=== PATIENT | female | born 1995 | race Two or more races ===

== ENCOUNTER 2024-05-28 18:43 | Emergency (ER) | payer SELFPAY ==
[2024-05-28 18:48] VITALS: BP 162/88; PULSE 77; TEMP 36.5; O2SAT 99; BMI 20.8
--- NOTE | 2024-05-28 19:03 | ED.GENADUL1 ---
HPI HPI - General Adult General Chief complaint: Abdominal Pain Stated complaint: LOWER ABDOMIN PAIN Time Seen by Provider: 05/28/24 18:44 Source: patient Mode of arrival: walk-in History of Present Illness HPI narrative: Patient is a 28-year-old female presents to the ER for evaluation of suprapubic pelvic pain. Patient notes symptoms started with sharp pains approximately 1 week before her menstrual stuck cycle started her periods are typically heavy for 3 days out of the 5 of her cycle. She is currently on her menses. Patient states she has been having these episodes for over a year. Patient states the first time it happened she actually had a fall and noticed 2 large blood clots that came out but that was a year ago. The patient is Croatian-speaking she has her with her and her pastors daughter at the bedside who is currently translating. The patient feels comfortable with her friend translating and we discussed her initial history of present illness however I will formal translation to further evaluate her history and symptoms. Patient denies any nausea or vomiting denies diarrhea. She has pain that is suprapubic and also in her back she did have a bowel movement earlier today. She denies any chest pain or shortness of breath. She denies any vaginal drainage or discharge no discomfort with urination. Location: Reports abdomen and pelvis Radiation: Reports non-radiation Severity: moderate Quality: Reports aching and sharp Pain Consistency: Reports constant Relieving factors: Reports none Exacerbating factors: Reports none Related Data Previous Rx's ?Medication ?Instructions ?Recorded ibuprofen 600 mg tablet 600 mg PO TID PRN pain #30 tabs 05/28/24 Allergies Allergy/AdvReac Type Severity Reaction Status Date / Time No Known Drug Allergies Allergy Verified 05/28/24 18:52 Opioid HPI Opioid Management Most Recent Opioid Data: No Data to Display Review of Systems ROS Constitutional Denies: fever, chills or change in weight Eyes Denies: change in vision or blurry vision Ears, nose, mouth, and throat Denies: throat pain, neck pain or throat swelling Cardiovascular Denies: chest pain or palpitations Respiratory Denies: shortness of breath or cough Gastrointestinal Reports: abdominal pain; Denies: nausea or vomiting Genitourinary Reports: painful urination, painful menstruation and vaginal bleeding; Denies: urinary frequency, urinary urgency or vaginal discharge Musculoskeletal Reports: back pain; Denies: neck pain, extremity pain or extremity swelling Integumentary/Breast Denies: rash or itching Neurological Denies: headache Endocrine Denies: excessive urination Exam Narrative Exam Narrative: Nurses notes and vital signs reviewed and patient is not hypoxic. General: The patient appears well and in no apparent distress. Patient is resting comfortably on cart. Skin: Warm, dry, no pallor noted. Head: Normocephalic, atraumatic Neck: Supple, trachea mid-line, no tenderness, no lymphadenopathy Eye: Pupils are equal, round and reactive to light, EOMI Ears, Nose, Mouth, and Throat: External exam unremarkable, mucous membranes moist Cardiovascular: Regular Rate and Rhythm Respiratory: Patient is in no distress, no accessory muscle use, lungs are clear to auscultation, no wheezing, rales or rhonchi. Chest Wall: no tenderness Back: non-tender, no CVA tenderness Musculoskeletal: normal ROM, no tenderness, no swelling GI: Normal bowel sounds, positive suprapubic tenderness to palpation, no masses appreciated. No rebound, guarding, or rigidity noted. Neurological: A&O x4 Psychiatric: Cooperative Constitutional Vital Signs, click to edit/add: Last Vital Signs Temp 97.7 F 05/28/24 18:48 Pulse 72 05/28/24 21:13 Resp 16 05/28/24 21:13 BP 114/77 05/28/24 21:13 Pulse Ox 100 05/28/24 21:13 O2 Del Method Room Air 05/28/24 21:13 Course Vital Signs Vital signs: Vital Signs Temperature 97.7 F 05/28/24 18:48 Pulse Rate 77 05/28/24 18:48 Respiratory Rate 18 05/28/24 18:48 Blood Pressure 162/88 H 05/28/24 18:48 Pulse Oximetry 99 05/28/24 18:48 Oxygen Delivery Method Room Air 05/28/24 18:48 Temperature 97.7 F 05/28/24 18:48 Pulse Rate 72 05/28/24 21:13 Respiratory Rate 16 05/28/24 21:13 Blood Pressure 114/77 05/28/24 21:13 Pulse Oximetry 100 05/28/24 21:13 Oxygen Delivery Method Room Air 05/28/24 21:13 Medical Decision Making [facility] Narrative Medical decision making narrative: Patient presents with history concerning for dysmenorrhea. Spouse is present at bedside she denies any abnormal vaginal discharge she notes 3 out of the 5 days when she is on her menses is heavier for flow than the last couple. Patient reevaluated I did not want to offend the patient's friend who was from her orthodoxy doing the initial interpretation for the patient of which she felt comfortable but to gain further knowledge I did elicit the bedside hitting coach via the iPad. Extensive conversation with the patient about her symptoms and she has been having pain with her periods monthly for the past year. She is almost pain-free with the dose of Toradol given through the IV. We discussed a prescription of Motrin for at home she is strongly encouraged to follow-up with a rush seater to discuss her symptoms and potential treatments as this has been a monthly occurrence her ultrasound was performed today and there was no evidence of torsion, patient agreeable with treatment plan had no further concerns or questions. The abdomen was reexamined and nonsurgical no tenderness at McBurney's point the bedside hitting coach was used to discussed the importance of follow-up and answered all patient's questions. The patient is to followup with OBGYN/ primary care physician in next 2-3 days or to return to the emergency department should any of the signs or symptoms worsen or new symptoms develop. Patient had questions answered. The patient agrees with the following Diagnosis and Treatment plan and the patient will be discharged home. Lab Data Lab results reviewed: Yes I reviewed the patient's lab results Labs: Lab Results 05/28/24 05/28/24 Range/Units 18:57 19:00 WBC 11.1 H (4.0-11.0) 10^3/uL RBC 4.71 (4.20-5.40) 10^6/uL Hgb 13.9 (12.0-16.0) g/dL Hct 40.6 (36.0-48.0) % MCV 86.2 (81.0-99.0) fL MCH 29.5 (26.7-34.0) pg MCHC 34.2 (29.9-35.2) g/dL RDW 13.2 (11.0-15.0) % Plt Count 322 (150-450) 10^3/uL MPV 11.8 (9.5-13.5) fL Neut % (Auto) 61.4 (43.0-75.0) % Lymph % (Auto) 28.1 (20.5-60.0) % [place] % (Auto) 6.2 (1.7-12.0) % Eos % (Auto) 3.2 (0.9-7.0) % Baso % (Auto) 0.5 (0.2-2.0) % Neut # (Auto) 6.8 H (1.4-6.5) 10^3/uL Lymph # (Auto) 3.1 (1.2-3.8) 10^3/uL [place] # (Auto) 0.7 (0.3-0.8) 10^3/uL Eos # (Auto) 0.4 (0.0-0.7) 10^3/uL Baso # (Auto) 0.1 (0.0-0.1) 10^3/uL Abs Immat Gran (auto) 0.07 H (0.00-0.03) 10^3/uL Imm/Tot Granulo (auto) 0.6 H (0.0-0.5) % Sodium 141 (136-145) mmol/L Potassium 4.3 (3.5-5.1) mmol/L Chloride 104 (98-107) mmol/L Carbon Dioxide 25.5 (21.0-32.0) mmol/L Anion Gap 15.8 BUN 12.0 (7.0-18.0) mg/dL Creatinine 0.65 (0.55-1.02) mg/dL Est GFR ( Amer) >60 (>=60 mL/min/1.73m^2) Est GFR (Non-Af Amer) >60 (>=60 mL/min/1.73m^2) BUN/Creatinine Ratio 18.5 Glucose 111 H (74-106) mg/dL Lactate 1.4 (0.4-2.0) mmol/L Calcium 9.1 (8.5-10.1) mg/dL Total Bilirubin 0.3 (0.2-1.0) mg/dL AST 44 H (15-37) U/L ALT 94 H (14-59) U/L Alkaline Phosphatase 99 (46-116) U/L Total Protein 7.7 (6.4-8.2) g/dL Albumin 3.8 (3.4-5.0) g/dL Globulin 3.9 g/dL Albumin/Globulin Ratio 1.0 Lipase 52.0 (16.0-77.0) U/L Serum HCG, Qual Negative (NEGATIVE) Urine Color Lt. yellow (YELLOW) Urine Clarity Clear (CLEAR) Urine pH 6.5 (5.0-9.0) Ur Specific [place] 1.020 (1.005-1.025) Urine Protein Negative (NEG/TRACE) mg/dL Urine Glucose (UA) Negative (NEGATIVE) mg/dL Urine Ketones Negative (NEGATIVE) mg/dL Urine Occult Blood Negative (NEGATIVE) Urine Nitrite Negative (NEGATIVE) Urine Bilirubin Negative (NEGATIVE) Urine Urobilinogen 0.2 (0.2-1.0) EU/dL Ur Leukocyte Esterase Trace A (NEGATIVE) Urine RBC 0-2 (0-2) #/HPF Urine WBC 2-5 A (NONE SEEN) #/HPF Ur Squamous Epith Cells Few A (NONE/RARE) #/LPF Urine Crystals None seen (None Seen) #/HPF Urine Bacteria None seen (NONE SEEN) #/HPF Urine Casts None seen (NONE SEEN) #/LPF Urine Mucus None seen (NONE SEEN) Ur Culture Indicated? No Discharge Plan Discharge Chief Complaint: Abdominal Pain Clinical Impression: Dysmenorrhea, Pelvic pain Patient Disposition: Home, Self-Care Time of Disposition Decision: 21:19 Condition: Good Mode of Transportation: Private Vehicle Prescriptions / Home Meds: New ibuprofen 600 mg tablet 600 mg PO TID PRN (Reason: pain) Qty: 30 0RF Print Language: Croatian Instructions: Dysmenorrhea (ED) Additional Instructions: Dr. Jones/ Dr. Del Angel for CASEWORK SUPERVISOR- follow up Referrals: Hieu Del Angel DO [Physician] - As soon as possible [facility] [Physician] - As soon as possible Fartun Jones MD [Physician] - As soon as possible
[2024-05-28] MEDS: KETOROLAC TROMETHAMINE 30 MG/ML VIAL IVP (19:10)
--- NOTE | 2024-05-28 19:19 | US_ITS ---
[address] [address] Patient Name: ARISTIDES MUKHERJEE MRN: [id number] date: 1995 Sex: F Assigned Patient Location: ER Current Patient Location: Accession/Order Number: [id number] Exam Date: 05/28/2024 19:20 Report Date: 05/28/2024 21:23 At the request of: ERMELINDA CHÁVEZ Procedure: US pelvis transvaginal EXAM: US Pelvis Transvaginal CLINICAL INDICATION: pelvic pain TECHNIQUE: Real-time transvaginal pelvic ultrasound with image documentation. Transvaginal imaging was used for better evaluation of the endometrium and adnexa. COMPARISON: No relevant prior studies available. FINDINGS: UTERUS/CERVIX: Uterus measures 7.8 x 4.1 x 5.5 cm. The endometrium is 12 mm. No myometrial mass. RIGHT OVARY: Right ovary measures 2.7 x 2.2 x 2.5 cm. Normal blood flow. LEFT OVARY: The left ovary measures 1.9 x 1.8 x 2.6 cm. Normal blood flow. FREE FLUID: No free fluid. US/US pelvis transvaginal IMPRESSION: Unremarkable pelvic ultrasound. Electronically authenticated by: KODI PABLO Date: 05/28/2024 21:23
--- NOTE | 2024-05-28 19:19 | US_ITS ---
[address] [address] Patient Name: ARISTIDES MUKHERJEE MRN: [id number] date: 1995 Sex: F Assigned Patient Location: ER Current Patient Location: Accession/Order Number: [id number] Exam Date: 05/28/2024 19:20 Report Date: 05/28/2024 21:23 At the request of: ERMELINDA CHÁVEZ Procedure: US vas organ single comp EXAM: US Pelvis Transvaginal CLINICAL INDICATION: pelvic pain TECHNIQUE: Real-time transvaginal pelvic ultrasound with image documentation. Transvaginal imaging was used for better evaluation of the endometrium and adnexa. COMPARISON: No relevant prior studies available. FINDINGS: UTERUS/CERVIX: Uterus measures 7.8 x 4.1 x 5.5 cm. The endometrium is 12 mm. No myometrial mass. RIGHT OVARY: Right ovary measures 2.7 x 2.2 x 2.5 cm. Normal blood flow. LEFT OVARY: The left ovary measures 1.9 x 1.8 x 2.6 cm. Normal blood flow. FREE FLUID: No free fluid. US/US vas organ single comp IMPRESSION: Unremarkable pelvic ultrasound. Electronically authenticated by: KODI PABLO Date: 05/28/2024 21:23
[2024-05-28 19:25] LABS: Bilirubin Urine NEGATIVE (NEGATIVE); Blood Urine NEGATIVE (NEGATIVE); Clarity Urine CLEAR (CLEAR); Color Urine LT. YELLOW (YELLOW); Glucose Urine UA NEGATIVE (NEGATIVE); Ketones Urine NEGATIVE (NEGATIVE); Leukocyte Esterase Urine TRACE (NEGATIVE); Nitrite Urine NEGATIVE (NEGATIVE); Protein Urine NEGATIVE (NEG/TRACE); Urobilinogen Urine 0.2 EU/dL (0.2-1.0); pH Urine 6.5 (5.0-9.0)
[2024-05-28 19:27] LABS: Basophils Absolute Auto 0.1 10^3/uL (0.0-0.1); Basophils Percent Auto 0.5 % (0.2-2.0); Eosinophils Absolute Auto 0.4 10^3/uL (0.0-0.7); Eosinophils Percent Auto 3.2 % (0.9-7.0); Hematocrit 40.6 % (36.0-48.0); Hemoglobin 13.9 g/dL (12.0-16.0); Immature Granulocytes Abs Auto 0.07 10^3/uL (0.00-0.03); Immature Granulocytes Pct Auto 0.6 % (0.0-0.5); Lymphocytes Absolute Auto 3.1 10^3/uL (1.2-3.8); Lymphocytes Percent Auto 28.1 % (20.5-60.0); Mean Corpuscular HGB Conc 34.2 g/dL (29.9-35.2); Mean Corpuscular Hemoglobin 29.5 pg (26.7-34.0); Mean Corpuscular Volume 86.2 fL (81.0-99.0); Mean Platelet Volume 11.8 fL (9.5-13.5); Monocytes Absolute Auto 0.7 10^3/uL (0.3-0.8); Monocytes Percent Auto 6.2 % (1.7-12.0); Neutrophils Absolute Auto 6.8 10^3/uL (1.4-6.5); Neutrophils Percent Auto 61.4 % (43.0-75.0); Platelet Count 322 10^3/uL (150-450); Red Blood Count 4.71 10^6/uL (4.20-5.40); Red Cell Distribution Width 13.2 % (11.0-15.0); White Blood Count 11.1 10^3/uL (4.0-11.0)
[2024-05-28 19:33] LABS: RBC Urine 0-2 #/HPF (0-2)
[2024-05-28 19:34] LABS: Bacteria Urine NONE SEEN #/HPF (NONE SEEN); Cast Seen? NONE SEEN #/LPF (NONE SEEN); Crystals Seen? None Seen #/HPF (None Seen); Mucus Urine NONE SEEN (NONE SEEN); Squamous Epithelial Cell Urine FEW #/LPF (NONE/RARE); Urine Culture Indicated NO
[2024-05-28 19:34] LABS: HCG Qualitative NEGATIVE (NEGATIVE); Internal Control Within Normal Limits
[2024-05-28 19:39] LABS: Alanine Aminotransferase 94 U/L (14-59); Albumin Level 3.8 g/dL (3.4-5.0); Alkaline Phosphatase 99 U/L (46-116); Anion Gap 15.8; Aspartate Amino Transferase 44 U/L (15-37); BUN Creatinine Ratio 18.5; Bilirubin Total 0.3 mg/dL (0.2-1.0); Calcium 9.1 mg/dL (8.5-10.1); Carbon Dioxide 25.5 mmol/L (21.0-32.0); Chloride 104 mmol/L (98-107); Estimated GFR (African America >60 (>=60 mL/min/1.73m^2); Estimated GFR (Non-African Ame >60 (>=60 mL/min/1.73m^2); Globulin 3.9 g/dL; Glucose 111 mg/dL (74-106); Potassium 4.3 mmol/L (3.5-5.1); Sodium 141 mmol/L (136-145); Total Protein 7.7 g/dL (6.4-8.2)
[2024-05-28 19:42] LABS: Lactate/Lactic Acid 1.4 mmol/L (0.4-2.0)
[2024-05-28 21:13] VITALS: BP 114/77; PULSE 72; O2SAT 100
== END 2024-05-28 21:39 | disposition home or self-care (01) ==
PROVIDERS: Personal Emergency Response Attendant; Emergency Provider Emergency Medicine
DX: N94.6 Dysmenorrhea, unspecified (principal); R10.2 Pelvic and perineal pain
CPT/HCPCS: 36415; 76830; 80053; 81001; 83605; 83690; 84703; 85025; 93975; 96374; 99285; J1885; J2405

== ENCOUNTER 2025-01-07 20:10 | Emergency (ER) | payer SELFPAY ==
--- NOTE | 2025-01-07 20:30 | ED_ITS ---
HPI - General Chief complaint: Vaginal Bleeding Stated complaint: TEST Time Seen by Provider: 01/07/25 20:14 History of Present Illness HPI Narrative: cc -positive test Information obtained via an diplomatic interpreter as the patient is not Cape Verdean-speaking Patient is an 16-year-old female who just moved to this area from [place] and does not speak [place]dean. She had her last menstrual period December 05, 2024. She said that she began bleeding this morning -just had some vaginal spotting -and took a home test that was positive. She now presents to the ED tonight because she continues to have some spotting. She also admits to some lower abdominal/pelvic cramping. The patient denied any fever, chills, chest pain, shortness of breath, urinary changes, flank pain or back pain. She denied any fall or injury. She brought the test which shows that she has positive. A1 with a young child currently residing in [place]. This will be her third . Her second ended in spontaneous miscarriage about 1 year ago while she was living in [place]. She does not have a local turfgrass management professor. She has not attempted to contact anybody. In comparing the amount of bleeding that she is having now to her normal menstrual period, she says it is a very small amount comparatively. Related Data Home Medications ?Medication ?Instructions ?Recorded ?Confirmed No Known Home Medications 01/07/2512/19 Allergies Allergy/AdvReac Type Severity Reaction Status Date / Time No Known Drug Allergies Allergy Verified 05/28/24 18:52 PFSH PFSH Social History Little interest or pleasure in doing things: not at all Feeling down, depressed, or hopeless: not at all Exam Narrative Exam Narrative: Nurses notes and vital signs reviewed and patient is not hypoxic. afebrile General: Well-appearing and in no apparent distress. Skin: Warm, dry, no pallor noted. Eye: Pupils are equal, round and EOMI. No scleral icterus. Ears, Nose, Mouth, and Throat: Oral mucosa is moist Cardiovascular: Regular Rate and Rhythm without murmur, gallop or rub. Respiratory: No accessory muscle use or respiratory distress. Lungs are clear to auscultation, no wheezing, rales or rhonchi Musculoskeletal: normal ROM, no calf or popliteal tenderness, no lower extremity edema/swelling GI: Abdomen is soft, non-distended. Normal bowel sounds. No abdominal or adnexal masses appreciated. Bilateral lower abdominal tenderness to palpation - no pelvic tenderness. No rebound, guarding, or rigidity noted. Neurological: A&O x4. No cranial nerve dysfunction observed. No truncal ataxia. Moves all extremities. Sensation intact. Psychiatric: Cooperative and interactive. Normal mood and affect. Constitutional Vital Signs, click to edit/add: Last Vital Signs Temp 98.8 F 01/07/25 20:36 Pulse 70 01/07/25 20:36 Resp 20 01/07/25 20:36 BP 130/87 01/07/25 20:36 Pulse Ox 100 01/07/25 20:36 O2 Del Method Room Air 01/07/25 20:36 Course Vital Signs Vital signs: Vital Signs Temperature 98.8 F 01/07/25 20:36 Pulse Rate 70 01/07/25 20:36 Respiratory Rate 01/07/25 20:36 Blood Pressure 130/87 01/07/25 20:36 Pulse Oximetry 100 01/07/25 20:36 Oxygen Delivery Method Room Air 01/07/25 20:36 Temperature 98.8 F 01/07/25 20:36 Pulse Rate 70 01/07/25 20:36 Respiratory Rate 01/07/25 20:36 Blood Pressure 130/87 01/07/25 20:36 Pulse Oximetry 100 01/07/25 20:36 Oxygen Delivery Method Room Air 01/07/25 20:36 MDM - OB/Uterine Contractions MDM Narrative Medical decision making narrative: Patient is about 2 weeks , based on dates. She has no other complaints. She does not have a local turfgrass management professor. Her last menstrual period was August 05. She now has vaginal spotting and a positive test that she took this morning. Quantitative hCG obtained - 345, consistent with about 2wk . Through the diplomatic interpreter, it was explained to the patient that she will be seeing the turfgrass management professor locally rather than coming to the hospital for her obstetrical/gynecological care. She was given information for Dr. Del Angel, the local turfgrass management professor on-call. Instructions were obtained and printed in [facility] Data Attestation: I reviewed the patient's lab results. Labs: Lab Results 01/07/25 Range/Units 20:50 HCG, Quant 345 mIU/mL Discharge Plan Discharge Chief Complaint: Vaginal Bleeding Clinical Impression: Patient Disposition: Home, Self-Care Time of Disposition Decision: 20:36 Prescriptions / Home Meds: No Action No Known Home Medications Print Language: Indian Instructions: (ED) Referrals: Hieu Del Angel DO [Physician, CERTIFIED APPLIANCE SERVICE TECHNICIAN] - 1 week
[2025-01-07 20:36] VITALS: BP 130/87; PULSE 70; TEMP 37.1; O2SAT 100; BMI 24.6
== END 2025-01-07 21:40 | disposition home or self-care (01) ==
PROVIDERS: Emergency Provider Emergency Medicine
DX: Z34.91 Encounter for supervision of normal pregnancy, unspecified, first trimester (principal)
CPT/HCPCS: 36415; 84702; 99283

== ENCOUNTER 2025-01-12 12:50 | Emergency (ER) | payer SELFPAY ==
--- OUTSIDE RECORDS SUMMARY | 2025-01-12 12:23 | XMS_ITS | Encounter Summary ---
Author Organization [facility] Address [id number] [address] [place] [address] Care Team Providers Care Lead Nitrate Processor Name Role Phone No Pcp, No Pcp Primary Care Provider Unavailabl e Reason for Visit * Reason Comments Vaginal Bleeding - Encounter Details Date Type Department Care Team (Late st Contact Info) Description 01/12/2025 12:23 PM EDT - 01/12/2025 12:25 PM EDT Emergency [facility] - Emergency [address] [place] [address] Chidi Meeks, DO [address] [place], [place] [id number] Orly Griffith, DO [address] [place] [address] Vaginal bleeding (Primary Dx) Discharge Disposition: Left Without Treatment Social History Tobacco Use Types Packs/Day Years Used Date Smoking Tobacco: Never Assessed Hunger Screening Answer Date Recorded Within the past 12 months we worried whether our food would run out before we got money to buy more. Never True 01/12/2025 Within the past 12 months th e food we bought just didn't last and we didn't have money to get more. Never True 01/12/2025 Comments Unknown Sex and Gender Information Value Date Recorded Sex Assigned at Not on file Legal Sex Female 11:58 AM EDT Gender Identity Not on file Sexual Orientation Not on file documented as of this encounter Last Filed Vital Signs Vital Sign Reading Time Taken Comments Blood Pressure 118/72 01/12/2025 10:37 AM EDT Pulse 69 01/12/2025 10:37 AM EDT Temperature 37.2 C (98.9 F) 01/12/2025 10:37 AM EDT Respiratory Rate 18 01/12/2025 10:37 AM EDT Oxygen Saturation 100% 01/12/2025 10:37 AM EDT Inhaled Oxygen Concentration - - Weight 60.1 kg (132 lb 8 oz) 01/12/2025 10:37 AM EDT Height - - Body Mass Index - - documented in this encounter ED Notes * Chidi Meeks, DO - 01/12/2025 12:26 PM EDT Images from the original note were not included. [facility] - EMERGENCY Pt Name: Montserrat Arambula Birthdate: 1995 Chief Complaint: Chief Complaint Patient presents with Vaginal Bleeding - History of Present Illness: This is a 29-year-old female who comes in with a complaint of vaginal bleeding. This patient left without being seen. Past Medical History: History reviewed. No pertinent past medical history. Past Surgical History: No past surgical history on file. Family History: History reviewed. No pertinent family history. Social History: Social History Socioeconomic History Marital status: Social Drivers of Health Food Insecurity: No Food Insecurity (01/12/2025) Hunger Screening Food Insecurity - Worry: Never True Food Insecurity - Inability: Never True Review of Systems: Review of Systems Physical Exam: ED Triage Vitals [01/12/25 1037] Temp Heart Rate Resp BP SpO2 37.2 ??C (98.9 ??F) 69 18 118/72 100 % Temp Source Heart Rate Source Patient Position BP Location FiO2 (%) Oral Pulse Ox Sitting Left arm -- Vitals: 01/12/25 1037 BP: 118/72 Temp: 37.2 ??C (98.9 ??F) TempSrc: Oral Pulse: 69 Resp: 18 SpO2: 100% MAP (mmHg): 86 Weight: 60.1 kg (132 lb 8 oz) 100 Physical Exam Procedure: Procedures Re-evaluation: Re-Evaluation Medical Decision Making Amount and/or Complexity of Data Reviewed Labs: ordered. ED Course: Clinical Impressions as of 01/12/25 1241 Vaginal bleeding . ED Disposition ED Disposition: LWBS after Triage Date/Time: WedJan 12, 2025 12:41 PM Comment: None . Please note that portions of this note were completed with a voice recognition program. Efforts were made to edit the dictations but occasionally words are mis-transcribed. Chidi Meeks, 01/12/25 1227 Chidi Meeks, 01/12/25 1241 * Annamarie Griffiths RN - 01/12/2025 10:36 AM EDT Pt comes to ED for vaginal bleeding. Pt is approx 2 weeks . documented in this encounter Plan of Treatment Upcoming Encounters Date Type Department Care Team (Late st Contact Info) Description 01/18/2025 1:00 PM EDT Office Visit [facility] [address] [place] [id number] Sommer Marlow, ASSOCIATE SOFTWARE ENGINEER-MOLD FILLER AND DRAINER [address] [place], [place] [id number] documented as of this encounter Visit Diagnoses Diagnosis Vaginal bleeding- Primary Other specified noninflammatory disorder of vagina documented in this encounter Care Teams Lead Nitrate Processor Relationship Specialty Start Date End Date No Pcp, [place] [address] PCP - General Family Medicine 01/12/25 documented as of this encounter
[2025-01-12 13:09] VITALS: BP 145/77; PULSE 79; TEMP 37; O2SAT 100; BMI 24.7
--- NOTE | 2025-01-12 13:20 | ED_ITS ---
HPI HPI - General Adult General Chief complaint: OB/Uterine Contractions Stated complaint: 2 WEEKS BLEEDING Time Seen by Provider: 01/12/25 13:04 Source: patient and graves registration specialist Mode of arrival: walk-in History of Present Illness HPI narrative: 29-year-old female presented to the emergency department for vaginal bleeding and abdominal pain. LMP was about a month ago. She was seen here a few days ago and at that time had an hCG titer of 345. She continues to have this pain and bleeding. She does not speak Croatian well and history is obtained through an graves registration specialist. She points to the suprapubic area to indicate area of pain. No trauma. Related Data Home Medications ?Medication ?Instructions ?Recorded ?Confirmed No Known Home Medications 01/07/2512/19 Allergies Allergy/AdvReac Type Severity Reaction Status Date / Time No Known Drug Allergies Allergy Verified 05/28/24 18:52 Review of Systems ROS Narrative A ten point review of systems is negative except as noted above. PFSH PFSH Social History Little interest or pleasure in doing things: not at all Feeling down, depressed, or hopeless: not at all Exam Narrative Exam Narrative: Nurses note and vital signs reviewed and patient is not hypoxic. General:The patient appears well and in no apparent distress.Patient is resting comfortably on cart. Skin:Warm, dry, no pallor noted.There is no rash noted. Head:Normocephalic, atraumatic Eye: Normal conjunctiva, no drainage Ears, Nose, Mouth, and Throat: oral mucosa is moist. Nares patent. Cardiovascular:Regular Rate and Rhythm Respiratory:Patient is in no distress, no accessory muscle use, lungs are clear to auscultation, no wheezing, rales or rhonchi Back:non-tender GI: Soft nondistended. She has tenderness in the epigastric area Musculoskeletal: The patient has no evidence of calf tenderness, no pitting edema, symmetrical pulses noted bilaterally Neurological:A&O, normal speech Psychiatric:Cooperative Constitutional Vital Signs, click to edit/add: Last Vital Signs Temp 98.6 F 01/12/25 13:09 Pulse 79 01/12/25 13:09 Resp 18 01/12/25 13:09 BP 145/77 H 01/12/25 13:09 Pulse Ox 100 01/12/25 13:09 O2 Del Method Room Air 01/12/25 13:09 Course Vital Signs Vital signs: Vital Signs Temperature 98.6 F 01/12/25 13:09 Pulse Rate 79 01/12/25 13:09 Respiratory Rate 18 01/12/25 13:09 Blood Pressure 145/77 H 01/12/25 13:09 Pulse Oximetry 100 01/12/25 13:09 Oxygen Delivery Method Room Air 01/12/25 13:09 Temperature 98.6 F 01/12/25 13:09 Pulse Rate 79 01/12/25 13:09 Respiratory Rate 18 01/12/25 13:09 Blood Pressure 145/77 H 01/12/25 13:09 Pulse Oximetry 100 01/12/25 13:09 Oxygen Delivery Method Room Air 01/12/25 13:09 Medical Decision Making MDM Narrative Medical decision making narrative: hCG titer is down to 137 but the patient was having pain so an ultrasound was performed. No evidence of ectopic on the ultrasound nor IUP. Discussed with the patient. My impression at this point is that she has had a miscarriage. She will follow-up with Dr. Del Angel and return to emergency department if symptoms worsen. Treatment diagnosis and follow-up were discussed with the patient. Differential Diagnosis Differential Diagnosis: Miscarriage, ectopic Lab Data Lab results reviewed: Yes I reviewed the patient's lab results Labs: Lab Results 01/12/25 Range/Units 13:30 WBC 8.7 (4.0-11.0) 10^3/uL RBC 4.38 (4.20-5.40) 10^6/uL Hgb 13.1 (12.0-16.0) g/dL Hct 38.1 (36.0-48.0) % MCV 87.0 (81.0-99.0) fL MCH 29.9 (26.7-34.0) pg MCHC 34.4 (29.9-35.2) g/dL RDW 14.0 (11.0-15.0) % Plt Count 287 (150-450) 10^3/uL MPV 11.4 (9.5-13.5) fL Neut % (Auto) 61.8 (43.0-75.0) % Lymph % (Auto) 27.8 (20.5-60.0) % [place] % (Auto) 7.0 (1.7-12.0) % Eos % (Auto) 2.9 (0.9-7.0) % Baso % (Auto) 0.3 (0.2-2.0) % Neut # (Auto) 5.4 (1.4-6.5) 10^3/uL Lymph # (Auto) 2.4 (1.2-3.8) 10^3/uL [place] # (Auto) 0.6 (0.3-0.8) 10^3/uL Eos # (Auto) 0.3 (0.0-0.7) 10^3/uL Baso # (Auto) 0.0 (0.0-0.1) 10^3/uL Abs Immat Gran (auto) 0.02 (0.00-0.03) 10^3/uL Imm/Tot Granulo (auto) 0.2 (0.0-0.5) % Sodium 139 (136-145) mmol/L Potassium 3.6 (3.5-5.1) mmol/L Chloride 105 (98-107) mmol/L Carbon Dioxide 26.2 (21.0-32.0) mmol/L Anion Gap 11.4 BUN 8.0 (7.0-18.0) mg/dL Creatinine 0.55 (0.55-1.02) mg/dL Est GFR ( Amer) >60 (>=60 mL/min/1.73m^2) Est GFR (Non-Af Amer) >60 (>=60 mL/min/1.73m^2) BUN/Creatinine Ratio 14.5 Glucose 101 (74-106) mg/dL Calcium 8.9 (8.5-10.1) mg/dL HCG, Quant 137 mIU/mL Blood Type O Positive Imaging Data Ultrasound: Radiologist's impression: ITS Impressions Transvaginal US 01/12/25 14:07 Impression: No ultrasound evidence of intrauterine . Given the low beta hCG, differential considerations includes early IUP, miscarriage or possibly ectopic , however no evidence of ectopic is seen. No adnexal mass or complex free fluid. Correlation with beta hCG trend and repeat ultrasound is suggested to confirm viability. Impression dictated by: Mario Rawls Jr. DAmberOAmber 01/12/2025 3:48 PM Dictation Location: [place] [address] Electronically authenticated by: [id number] Y Date: 01/12/2025 15:48 Discharge Plan Discharge Chief Complaint: OB/Uterine Contractions Clinical Impression: Miscarriage Patient Disposition: Home, Self-Care Time of Disposition Decision: 16:13 Condition: Good Mode of Transportation: Private Vehicle Prescriptions / Home Meds: No Action No Known Home Medications Print Language: Khmer Instructions: Miscarriage (ED) Additional Instructions: Follow-up with Dr. Del Angel. Return to emergency department if symptoms worsen. Referrals: Physician,Non-Staff, MD [Primary Care Provider] - 1 week
--- NOTE | 2025-01-12 13:34 | PC.NURSE ---
pt was seen 5 days ago in this er for abdominal pain and vaginal bleeding, pt was to f/u with Dr Del Angel office, pt states she called the office for f/u appointment but was told they required 1000.00 up front payment, pt states she cannot afford the amount. pt is here today for abdominal pain and continued vaginal bleeding, pt does not speak icelandic and [employer] being used
[2025-01-12 13:42] LABS: Hematocrit 38.1 % (36.0-48.0); Hemoglobin 13.1 g/dL (12.0-16.0); Immature Granulocytes Abs Auto 0.02 10^3/uL (0.00-0.03); Immature Granulocytes Pct Auto 0.2 % (0.0-0.5); Lymphocytes Absolute Auto 2.4 10^3/uL (1.2-3.8); Mean Corpuscular HGB Conc 34.4 g/dL (29.9-35.2); Mean Corpuscular Hemoglobin 29.9 pg (26.7-34.0); Mean Corpuscular Volume 87.0 fL (81.0-99.0); Platelet Count 287 10^3/uL (150-450); Red Blood Count 4.38 10^6/uL (4.20-5.40); White Blood Count 8.7 10^3/uL (4.0-11.0)
--- OUTSIDE RECORDS SUMMARY | 2025-01-12 13:48 | XMS_ITS | Encounter Summary ---
Author Organization [facility] Address [id number] [address] [place] [address] Care Team Providers Care Wreath Maker Name Role Phone No Pcp, No Pcp Primary Care Provider Unavailabl e Encounter Details Date Type Department Care Team (Latest Contact Info) Description 01/12/2025 Travel Social History Tobacco Use Types Packs/Day Years [...] on file documented as of this encounter Plan of Treatment Upcoming Encounters Date Type Department Care Team (Late Contact Info) Description 01/18/2025 1:00 PM EDT Office Visit [facility] [address] [place] [phone] Sommer Marlow, SINGING TEACHER-INSULATION PROFESSIONAL [address] [place], [place] [phone] documented as of this encounter Visit Diagnoses Not on filedocumented in this encounter Care Teams Wreath Maker Relationship Specialty Start Date End Date No Pcp, [place] [address] PCP - General Family Medicine 01/12/25 documented as of this encounter
--- OUTSIDE RECORDS SUMMARY | 2025-01-12 13:48 | XMS_ITS | Clinical Summary ---
Author Organization [facility] Address [id number] [address] [place] [address] Care Team Providers Care Development Vice President Name Role Phone No Pcp, No Pcp Primary Care Provider Unavailabl e Allergies No known active allergies Medications No known medications Encounters Date Type Department Care Team Description 01/12/2025 12:23 PM EDT - 01/12/2025 12:25 PM EDT Emergency [facility] - Emergency [address] [place] [phone] NeverChidi contreras, DO NachoOrly lagunas, DO Vaginal bleeding (Primary Dx) Discharge Disposition: Left Without Treatment 01/12/2025 Travel 01/08/2025 Telephone [facility] [address] [place] [phone] Vicki Shahid RN from Last 3 Months Social History Tobacco Use Types Packs/Day Years [...] on file Sexual Orientation Not on file Last Filed Vital Signs Vital Sign Reading [...] - - Body Mass Index - - Plan of Treatment Upcoming Encounters Date Type Department Care Team (Late st Contact Info) Description 01/18/2025 1:00 PM EDT Office Visit [facility] [address] [place] [phone] Sommer Marlow, RESEARCH ASSISTANT PROFESSOR-REHABILITATION LIAISON [address] [place], [place] [phone] Health Maintenance Due Date Last Done Comments Depression Screening 2005 Tobacco Screening 2005 Adult BMI Screening 09/14/2011 DTaP,Tdap and Td Vaccines (1 - Tdap) 2012 Pap Smear 2014 Influenza Vaccine 12/18/2024 Medical Devices Not on file Care Teams Development Vice President Relationship Specialty Start Date End Date No Pcp, [place] [address] PCP - General Family Medicine 01/12/25
--- OUTSIDE RECORDS SUMMARY | 2025-01-12 13:51 | XMS_ITS | CCD ---
Author Organization [facility] Care Team Providers Care Physical Testing Supervisor Name Role Phone Unavailable Primary Care Provider Unavailabl e Encounters Encounter Date Encounter Type Care Provider Facility Start: 01-08-2025 End: 01-08-2025 Telephone encounter Vicki Shahid RN [facility] Plan of Treatment Date Care Activity Detail Author Start: 01-18-2025 End: 01-18-2025 Patient encounter procedure 01/18/2025 1:00 PM EDT [facility] [address] [place] [phone] Sommer Marlow, PRESS HAND SUPERVISOR-LEAD WEB DEVELOPER [address] [place], [place] [phone] [facility] Start: 12-18-2024 Influenza vaccination Influenza Vacc ine [facility] Start: 2014 Screening for malign ant neoplasm of cervix Pap Smear [facility] Start: 2012 DTaP,Tdap and Td Vaccines (1 - Tdap) DTaP,Tdap and Td Vaccines (1 - Tdap) [facility] Start: 09-14-2011 Adult BMI Screening Adult BMI Screen ing [facility] Start: 2005 Depression Screening Depression Scre ening [facility] Start: 2005 Tobacco Screening Tobacco Screening [facility] Social History Date Type Detail Facility Tobacco smoking status NHIS Tobacco smoking consumption unknown [facility] Start: 1995 Sex assigned at Not on file [facility] Start: 01-08-2025 Sex Female (finding) [facility] Gender identity Not on file [facility] Note 01-08-2025 Telephone Encounter - Vicki Shahid RN - 01/08/2025 12:09 PM EDT Note Date & Type Note Facility 01-08-2025 Miscellaneous Notes Formattin g of this note might be different from the original. Pt called, conference using [employer] Transplanter ID # [id number]. Pt states she would like to be seen for bleeding in . Pt states she went to the ED yesterday in [place] for bleeding however the patient states they could not do an ultrasound because she was too early. Reviewed warning signs with the patient and when to present to the ED. Pt is scheduled on 12/19/2024. Informed pt we will call the patient to move up her appt if there are cancellations. - Vicki Shahid RN 01/08/25 12:12 PM documented in this encounter [facility] Telephone encounter Note 01-08-2025 Telephone Encounter - Vicki Shahid RN - 01/08/2025 12:09 PM EDT Note Date & Type Note Facility 01-08-2025 Telephone encount er Note Pt called, conference using [employer] Transplanter ID # [id number]. Pt states she would like to be seen for bleeding in . Pt states she went to the ED yesterday in [place] for bleeding however the patient states they could not do an ultrasound because she was too early. Reviewed warning signs with the patient and when to present to the ED. Pt is scheduled on 12/19/2024. Informed pt we will call the patient to move up her appt if there are cancellations. - Vicki Shahid RN 01/08/25 12:12 PM [facility] Instructions Note Date & Type Note Facility Instructions Not on filedocumented in this en counter [facility] Additional Source Comments FOR RECORDS PERTAINING TO PATIENTS WHO ARE OR HAVE BEEN ENROLLED IN A CHEMICAL DEPENDENCY/SUBSTANCEABUSE PROGRAM, SOME INFORMATION MAY BE OMITTED. This clinical summary was aggregated from multiple sources. Caution should be exercised in using it in the provision of clinical care. This summary normalizes information from multiple sources, and as a consequence, information in this document may materially change the coding, format and clinical context of patient data. In addition, data may be omitted in some cases. CLINICAL DECISIONS SHOULD BE BASED ON THE PRIMARY CLINICAL RECORDS. [employer] [facility]. provides no warranty or guarantee of the accuracy or completeness of information in this document.
[2025-01-12 14:03] LABS: Anion Gap 11.4; Blood Urea Nitrogen 8.0 mg/dL (7.0-18.0); Calcium 8.9 mg/dL (8.5-10.1); Carbon Dioxide 26.2 mmol/L (21.0-32.0); Chloride 105 mmol/L (98-107); Estimated GFR (African America >60 (>=60 mL/min/1.73m^2); Estimated GFR (Non-African Ame >60 (>=60 mL/min/1.73m^2); Glucose 101 mg/dL (74-106); Potassium 3.6 mmol/L (3.5-5.1); Sodium 139 mmol/L (136-145)
--- NOTE | 2025-01-12 14:07 | US_ITS ---
The [address] [address] Patient Name: ARISTIDES MUKHERJEE MRN: [id number] date: 1995 Sex: F Assigned Patient Location: ER Current Patient Location: ER Accession/Order Number: [id number] Exam Date: 01/12/2025 14:27 Report Date: 01/12/2025 15:48 At the request of: KWASI ROLON MD Procedure: US OB transvaginal OB ultrasound. Reason for exam:Positive test. Pain. BHCG 137. Comparison:None Technique: Transabdominal and transvaginal imaging of the uterus and ovaries were obtained. Findings: No ultrasound evidence of intrauterine . No fibroid. Endometrium appears thickened measuring 18 mm. Right ovary measures 4.1 x 2.4 x 2.6 cm with a corpus luteum present. Left ovary measures 2.3 x 1.8 x 1.4 cm. Trace simple free fluid is seen. US/US OB transvaginal Impression: No ultrasound evidence of intrauterine . Given the low beta hCG, differential considerations includes early IUP, miscarriage or possibly ectopic , however no evidence of ectopic is seen. No adnexal mass or complex free fluid. Correlation with beta hCG trend and repeat ultrasound is suggested to confirm viability. Impression dictated by: Mario Rawls Jr., D.O. 01/12/2025 3:48 PM Dictation Location: [place] [address] Electronically authenticated by: [id number] Y Date: 01/12/2025 15:48
== END 2025-01-12 16:21 | disposition home or self-care (01) ==
PROVIDERS: Emergency Provider Emergency Medicine
DX: O03.9 Complete or unspecified spontaneous abortion without complication (principal)
CPT/HCPCS: 36415; 76817; 80048; 84702; 85025; 86900; 86901; 99285